=== PATIENT | female | born 2005 | race Caucasian/White ===

== ENCOUNTER 2023-12-13 12:55 | Emergency (ER) | payer OTHER, SELFPAY ==
[2023-12-13 12:59] VITALS: BP 138/94; PULSE 80; TEMP 36.6; O2SAT 98; BMI 39.7
--- NOTE | 2023-12-13 13:08 | ED_ITS ---
HPI HPI - General Adult General Chief complaint: Head Injury Stated complaint: [facility] - HEAD INJURY Time Seen by Provider: 12/13/23 13:07 Source: patient Mode of arrival: walk-in Limitations: no limitations History of Present Illness HPI narrative: Patient is a 18-year-old female who is presenting to the Emergency Room today with chief complaint of closed head injury. Patient was working in [facility]. 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 Patient slipped, landing backwards and hitting the back of her head on sand. Patient has not had a hard object on concrete. Patient was able to drive her car from [place] to [place] to be evaluated. Patient lives in a local area. Patient's father was able to help follow her from work to the Emergency Room today. Patient has mild lightheaded, dizziness, mild photophobia, minimal nausea. No neck pain, chest pain, shortness of breath. Patient had a closed head injury approximately one year ago with similar episode of slipping on ice and pain in the back of her head. Patient is alert and oriented ?3. No blood thinners. Patient's she is a IUD, she is not . No other acute complaints. . All systems are negative except as noted/marked. All systems reviewed and otherwise negative. . Nurses note and vital signs reviewed and patient is not hypoxic. General: The patient appears well and in no apparent distress. Patient is resting comfortably on cart. Patient is not toxic, lethargic, or listless Skin: Warm, dry, no pallor noted. There is no rash noted. No petechiae, purpura. Multiple piercings, no scalp hematoma, no hematoma, no abrasions or lacerations. Head: Normocephalic, atraumatic; No scalp hematoma. No midline or paracervical tenderness to palpation. Eye: Normal conjunctiva, no drainage, EOMI. PERRL. 4/2 Pupils, equal, bilateral. Ears, Nose, Mouth, and Throat: oral mucosa is moist. Nares patent. Mouth without vesicles. Cardiovascular: Regular Rate and Rhythm, no murmur, gallop, rub Respiratory: Patient is in no distress, no accessory muscle use, lungs are clear to auscultation, no wheezing, rales or rhonchi Back: non-tender, no CVA tenderness bilaterally to percussion. No CT LS midline pain GI: Obese, soft, no tenderness to palpation, no masses appreciated. No rebound, guarding, or rigidity noted. No flank pain bilateral, No distention Musculoskeletal: Patient has full range of motion of all of the extremities, no motor, sensory, or focal neurological deficits Neurological: A&O x3, normal speech Psychiatric: Cooperative Related Data Home Medications ?Medication ?Instructions ?Recorded ?Confirmed aripiprazole 5 mg tablet 5 mg PO DAILY 12/13/23 12/13/23 buspirone 5 mg tablet 5 mg PO DAILY 12/13/23 12/13/23 Allergies Allergy/AdvReac Type Severity Reaction Status Date / Time sulfamethoxazole Allergy Mild Verified 12/13/23 12:59 [From ] trimethoprim [From ] Allergy Mild Verified 12/13/23 12:59 pcn Allergy Mild Uncoded 12/13/23 12:59 Opioid HPI Opioid Management Most Recent Opioid Data: No Data to Display Exam Constitutional Vital Signs, click to edit/add: Last Vital Signs Temp 97.8 F 12/13/23 12:59 Pulse 80 12/13/23 12:59 Resp 18 12/13/23 12:59 BP 138/94 H 12/13/23 12:59 Pulse Ox 98 12/13/23 12:59 O2 Del Method Room Air 12/13/23 12:59 Course Vital Signs Vital signs: Vital Signs Temperature 97.8 F 12/13/23 12:59 Pulse Rate 80 12/13/23 12:59 Respiratory Rate 18 12/13/23 12:59 Blood Pressure 138/94 H 12/13/23 12:59 Pulse Oximetry 98 12/13/23 12:59 Oxygen Delivery Method Room Air 12/13/23 12:59 Temperature 97.8 F 12/13/23 12:59 Pulse Rate 80 12/13/23 12:59 Respiratory Rate 18 12/13/23 12:59 Blood Pressure 138/94 H 12/13/23 12:59 Pulse Oximetry 98 12/13/23 12:59 Oxygen Delivery Method Room Air 12/13/23 12:59 Medical Decision Making MDM Narrative Medical decision making narrative: Patient looks well. No acute indication for CT of the brain. Trauma criteria was discussed with patient and father. Patient's father is at bedside. Patient was given Tylenol initially in the uvula is open at discharge. Patient has mild nausea. No loss of consciousness. No vomiting, no neck pain. No significant findings. Patient will follow-up with occupational health clinic. Paperwork has been signed. No questions at discharge. Patient states that she suffers from anxiety, and feels better after Emergency Room evaluation. Father minute, and at discharge don't she feel better than nothing is wrong patient related her nausea to anxiety. No questions at discharge. Work restrictions given. Discharge Plan Discharge Stand Alone Forms: Portal Instructions Chief Complaint: Head Injury Clinical Impression: Closed head injury Patient Disposition: Home, Self-Care Time of Disposition Decision: 14:56 Condition: Fair Prescriptions / Home Meds: No Action aripiprazole 5 mg tablet 5 mg PO DAILY buspirone 5 mg tablet 5 mg PO DAILY Print Language: Maldivian Instructions: Head Injury (ED) Additional Instructions: Use ice 20 minutes on, 20 minutes off. Work restrictions were given. Worker's Comp. papers have been filled. Use Tylenol and Motrin, alternate every 4 hours to help with pain. Patient had closed head injury instructions discussed at bedside and on discharge paperwork. Referrals: [facility] - 1 week KIRAN CORONA [Primary Care Provider] - 1 week Discharge Date/Time: 12/13/23 15:14
[2023-12-13] MEDS: ACETAMINOPHEN 500 MG TABLET PO (13:12)
== END 2023-12-13 15:14 | disposition home or self-care (01) ==
PROVIDERS: Emergency Provider Emergency Medicine; PCP Nurse Practitioner
DX: S09.8XXA Other specified injuries of head, initial encounter (principal); W01.198A Fall on same level from slipping, tripping and stumbling with subsequent striking against other object, initial encounter; Z97.5 Presence of (intrauterine) contraceptive device; Z79.899 Other long term (current) drug therapy
CPT/HCPCS: 99282

== ENCOUNTER 2025-07-10 02:38 | Emergency (ER) | payer OTHER, SELFPAY ==
[2025-07-10 02:42] VITALS: BP 114/76; PULSE 97; TEMP 36.8; O2SAT 99; BMI 43.0
--- OUTSIDE RECORDS SUMMARY | 2025-07-10 02:44 | XMS_ITS | Clinical Summary ---
Author Organization [facility] Address [address] [place] [id number] Care Team Providers [employer] Name Role Phone Corrie Wilson MD Primary Care Provider [phone] Allergies Active AllergyReactionsCriticalityNoted WsamPjteihgrHvmfxhbtzgjGipf79/31/2019 Sulfamethoxazole-PvpgnwaunqufXqkmj12/31/2019 Medications MedicationSigDispense QuantityRefillsLast FilledStart DateEnd DateStatus FLUoxetine HCl (PROZAC) 40 mg capsule Take 60 mg by mouth once daily.Active Minocycline HCl 100 mg tablet Take 100 mg by mouth twice daily.Active cetirizine (ZYRTEC) 10 mg tablet Take 10 mg by mouth once daily.Active loratadine (CLARITIN) 10 mg tablet Take 1 tablet by mouth once daily as needed for Cold/Allergy Symptoms.09/10/2019 Active Active Problems ProblemNoted DateDiagnosed DateElevated gsggianmfuy57/02/2020 Overview (09/10/2019): Component Latest Ref Rng & Units 09/09/2019 Cholesterol, Total <170 mg/dL 155 Triglyceride <90 mg/dL 255 (H) HDL Cholesterol >45 mg/dL 28 (L) LDL Calculated <110 mg/dL 76 Non HDL Cholesterol <120 mg/dL 127 (H) VLDL Cholesterol <18 mg/dL 51 (H) TC:HDL Ratio <3.76 5.54 (H) LDL:HDL Ratio <2.42 2.71 (H) TSH 0.510 - 4.300 uU/mL 6.270 (H) Rcwtaoleui99/01/2020 Overview (09/09/2019): Continue fluoxetine 60mg daily Gender otzhzospa83/01/2020 Overview (09/09/2019): Needs outpatient referrals Consider binder Consider OCPs for menstrual dysphoria Borderline personality disorder in /01/2020 Overview (09/09/2019): Monitor and obtain outpatient collateral Elevated TSH09/09/2019 Overview (09/10/2019): TSH was 6.270 - will recommend repeating TSH following discharge Social History Tobacco UseTypesPacks/DayYears UsedDateSmoking Tobacco: Never Assessed CommentsNoSex and Gender InformationValueDate RecordedSex Assigned at Wzikss9809/09/2019 2:48 PM ESTLegal OvxVhgajr26/31/2019 6:43 PM ESTGender Identity Male09/09/2019 2:56 PM ESTSexual CkjuxgxebchTlwpprul05/01/2020 2:48 PM EST Last Filed Vital Signs Vital SignReadingTime TakenCommentsBlood Fypbfijv824/75009/10/2019 9:00 AM EST Gpmgp481909/10/2019 9:00 AM SXSUpbmydmjtsj32.4 ??C (97.5 ??F)09/10/2019 9:00 AM ESTRespiratory Ktly478909/10/2019 9:00 AM ESTOxygen Bdeedmskce67%09/10/2019 9:00 AM ESTInhaled Oxygen Concentration--Effkjz738.9 kg (260 lb)09/08/2019 6:54 PM ESTHeight--Body Mass Index-- Plan of Treatment Not on file Insurance Care Teams Team MemberRelationshipSpecialtyStart DateEnd Date Corrie Wilson MD [address] [place] [address] [place] [id number] PCP - WidtvtjJbnnguleok85/31/19
--- OUTSIDE RECORDS SUMMARY | 2025-07-10 02:44 | XMS_ITS | Clinical Summary ---
Author Organization [facility] Address [address] [place] [address] Care Team Providers Care Docket Clerk Name Role Phone Taniya, César Lacy DO Primary Care Provider [phone] Allergies Active AllergyReactionsCriticalityNoted DateCommentsPenicillinsHives,RashLow 06/09/2019Sulfamethoxazole-TrimethoprimGI intolerance,Hives09/08/2019 Medications MedicationSigDispense QuantityRefillsLast FilledStart DateEnd DateStatus hydrOXYzine HCl (Atarax) 50 MG tablet Take 1 tablet by mouth 3 (three) times a day as [id number] busPIRone (Buspar) 10 MG tablet Indications:Current moderate episode of major depressive disorder without prior episode (HCC)Take 1 tablet (10 mg) by mouth Daily 30 tablet 1114Active ARIPiprazole (Abilify) 10 MG tablet Indications:Current moderate episode of major depressive disorder without prior episode (HCC)Take 1 tablet by mouth once daily 30 tablet 5Active ofloxacin (Ocuflox) 0.3 % ophthalmic solution Indications:Acute bacterial conjunctivitis of left eyeAdminister 1 drop into the left eye in the morning and 1 drop at noon and 1 drop in the evening and1 drop before bedtime. 10 mL 5Active Additional Information Patient not taking.Reason: Not available, Reported on 06/21/2025 hydrOXYzine pamoate (Vistaril) 25 MG capsule Indications:Primary insomniaTake 1 capsule (25 mg) by mouth as needed at bedtime for anxiety (sleep) 30 capsule 5Active metFORMIN XR (Glucophage-XR) 500 MG 24 hr tablet Indications:Insulin resistanceTake 1 tablet (500 mg) by mouth in the evening. Take with meals Do not crush, chew, or split. 30 tablet 11004/26//ctive levothyroxine (Synthroid, Levoxyl) 50 MCG tablet Indications:Acquired hypothyroidismTake 1 tablet (50 mcg) by mouth Daily 30 tablet 11004/26//6Active rosuvastatin (Crestor) 10 MG tablet Indications:Elevated lipoprotein A levelTake 1 tablet (10 mg) by mouth Daily 30 tablet 5004/27/703393/ctive PARAGARD INTRAUTERINE COPPER IU by Intrauterine routeActive albuterol HFA (ProAir HFA) 90 mcg/act inhaler Indications:Acute coughInhale 2 puffs every 4 (four) hours if needed for wheezing 18 g 111/ctive Levonorgestrel (KYLEENA IU) by Intrauterine route06/21/2025Discontinued(Therapy completed) clindamycin (Cleocin) 300 MG capsule Indications:Acute non-recurrent maxillary sinusitisTake 1 capsule (300 mg) by mouth in the morning and 1 capsule (300 mg) before bedtime. Do all this for 10 days. 20 capsule /Expired predniSONE (Deltasone) 20 MG tablet Indications:Acute cough,Acute non-recurrent maxillary sinusitisTake 3 tablets (60 mg) by mouth Daily for 5 days, THEN 2 tablets (40 mg) Daily for 2 days, THEN 1 tablet (20 mg) Daily for 2 days. 21 tablet /Expired Active Problems ProblemNoted DateDiagnosed DateModerate mixed hyperlipidemia not requiring statin xfelhwq1704/20/2024Intrinsic ezvdry7508/13/2023Renal tmkvjp6108/13/2023Vitamin D qwhamekzvr09/05/2023Elevated ykpnosjctyj36/02/2020 Overview (08/13/2023): Component Latest Ref Rng & Units 09/09/2019 Cholesterol, Total <170 mg/dL 155 Triglyceride <90 mg/dL 255 (H) HDL Cholesterol >45 mg/dL 28 (L) LDL Calculated <110 mg/dL 76 Non HDL Cholesterol <120 mg/dL 127 (H) VLDL Cholesterol<18 mg/dL 51 (H) TC:HDL Ratio <3.76 5.54 (H) LDL:HDL Ratio <2.42 2.71 (H) TSH 0.510 - 4.300 uU/mL 6.270 (H) Borderline personality disorder in rigziytmxi04/01/2020 Overview (08/13/2023): Monitor and obtain outpatient collateral Zmklelkslz84/01/2020 Overview (08/13/2023): Continue fluoxetine 60mg daily Gender kvzyegtut89/01/2020 Overview (08/13/2023): Needs outpatient referrals Consider binder Consider OCPs for menstrual dysphoria Woltzru7001/03/2018 Resolved Problems ProblemNoted DateDiagnosed DateResolved DateSore /08/2024 Abdominal painmenorrhealood in stool /4509Kesmcnmoeqbxwe05/05/202312/05/2023Menstrual cramp08/13/2023 08/13/20239945Hhohbyswwygrwu54/05/202312/05/2023Suicidal behavior with attempted self-djrequ88Suicidal Encounters DateTypeDepartmentCare EtetOjwogiirgnd28/15/2025Telephone [facility] [address] [place] [address] Migdalia Sandra MA 06/21/2025 3:00 PM EDTOffice Visit [facility] [address] [place] [address] Janna Fields, QUALITY ASSURANCE MONITOR Acute cough (Primary Dx); Borderline personality disorder (HCC); Sore throat; Other fatigue; Acute non-recurrent maxillary gnraxaauw70/13/2025amboo flowsheet [facility] [place] [address] [place] [address] Janna Fields NP 06/21/20257066Mvyeyi15/15/2025Orders Only [facility] [place] [address] [place] [address] Janna Fields NP 04/27/2025Telephone [facility] [place] [address] [place] [address] Tamika Saucedo MA Medication Xyjjghqr77/18/2025 1:00 PM EDTOffice Visit [facility] [place] [address] [place] [address] Janna Fields NP Insulin resistance (Primary Dx); Acquired hypothyroidism ; Elevated lipoprotein A level ; Moderate mixed hyperlipidemia not requiring statin hjxvcun8604/26/2025amboo flowsheet [facility] [place] [address] [place] [address] Janna Fields NP 04/26/20253768Ygsxzl42/15/2025Results Follow-Up [facility] [place] [address] [place] [address] Janna Fields NP CBC and differential, Comprehensive metabolic panel, Hemoglobin A1c, Additional followed-up results: 10:30 AM EDTOffice Visit [facility] [place] [address] [place] [address] Janna Fields NP Hyperglycemia (Primary Dx); Vitamin D deficiency; Iron deficiency; Family history of elevated lipoprotein (a); Primary insomnia; Acute serous otitis media, recurrence not specified, unspecified laterality 04/20/2025amboo flowsheet [facility] [place] [address] [place] [address] Janna Fields NP 04/20/2025Travelfrom Last 3 Months Immunizations ImmunizationAdministration DatesNext DueDTaP, Vwqoosntiyz78/02/2009,10/14/2004, 2003,2003,2003Hep A, ped/adol, 2 dose02/20/2021,06/08/2019Hep B, Adolescent or Cpacksdim29/30/2005,02/12/2004,2003HiB, unspecified 10/14/2004Hib (HbOC)2003,2003,2003IPV12/09/2008,02/12/2004, 2003,2003Influenza Whole06/22/2004Influenza, Dunuqazbssj11/11/2010, 09/19/2009MMR12/09/2008,06/22/2004Meningococcal ACWY, bgqcnfdioxb26/07/2016 Meningococcal QFJ4R9202/20/2021,03/15/2016Moderna SARS-CoV-2 Npgebulmani75/16/2021 ,12/01/2020Novel Uxwrkgwir-R1G5-50, nasal10/20/2009,09/19/2009Pneumococcal Conjugate PCV 7010/14/2004,2003,2003,2003Polio, Unspecified 12/09/2008,02/12/2004,2003,2003Tdap03/15/20169733Uhpfquknp97/02/2009, 06/22/2004 Family History Medical HistoryRelationNameCommentsDiabetesBrotherDiabetesFatherHyperlipidemia FatherHypertensionFatherDiabetesMaternal GrandmotherDiabetesMotherRelationName StatusCommentsBrotherAliveFatherAliveMaternal GrandfatherDeceasedMaternal GrandmotherDeceasedMotherAlivePaternal GrandfatherDeceasedPaternal Grandmother Social History Tobacco UseTypesPacks/DayYears UsedDateSmoking Tobacco: Some DaysCigarettes Smokeless Tobacco: Never Tobacco Cessation:Ready to Q uit: Not Asked; Counseling Given: Not Answered Alcohol UseStandard Drinks/WeekCommentsNever0 (1 standard drink = 0.6 oz pure alcohol)caffeine: 2-3 cups per dayPHQ-2AnswerDate RecordedPatient Health Questionnaire-2 Bqnwx744CommentsNoSex and Gender Information ValueDate RecordedSex Assigned at BirthNot on fileLegal NxtKtjudq46/15/2023 8:14 PM EDTGender IdentityNot on fileSexual OrientationNot on file Last Filed Vital Signs Vital SignReadingTime TakenCommentsBlood Fsqnhxyu342/8806/21/2025 3:08 PM EDT Qmaji30610/13/2025 3:08 PM OUMVcrgpckzvrw71.9 ??C (96.6 ??F)06/21/2025 3:08 PM EDTRespiratory Rate--Oxygen Rgsvwxarvx74%06/21/2025 3:08 PM EDTInhaled Oxygen Concentration--Olmdva823 kg (304 lb)06/21/2025 3:08 PM CKQXokijf372.1 cm (5' 5 ) 06/21/2025 3:08 PM EDTBody Mass Index50.5906/21/2025 3:08 PM EDT Plan of Treatment Health MaintenanceDue DateLast DoneCommentsInfluenza Vaccine (#1)03/08/2026 10/20/2009, 09/19/2009, 06/22/2004Postponed from 05/10/2025 (Patient Refused) Procedures Procedure NamePriorityDate/TimeAssociated DiagnosisCommentsPOCT INFECTIOUS MONONUCLEOSIS DETOZZDBLvpdovc38/13/2025 3:37 PM EDT Sore throat Other fatigue POCT RAPID STREP RPnntfgq42/13/2025 3:36 PM EDT Acute cough Sore throat Other fatigue POCT COVID & FLU A/B ANTIGEN MXHVKnepesi56/13/2025 3:36 PM EDT Acute cough Sore throat Other fatigue COLONOSCOPY JCNQTLRNCOXeifanf02/12/2025 7:23 AM VOYBVFNKFSDuvkmuz04/12/2025 11:00 AM EDT Hyperglycemia LIPOPROTEIN A (LPA)Goiyevi4104/20/2025 11:00 AM EDT Family history of elevated lipoprotein (a) VITAMIN D 25 HYDROXY FNVOZKejiabt18/12/2025 11:00 AM EDT Vitamin D deficiency EABMYOYLIpbprtj43/12/2025 11:00 AM EDT Iron deficiency IRON, WEYOHFaobnuz06/12/2025 11:00 AM EDT Iron deficiency T4 (THYROXINE), NQDEFLgtkgsu01/12/2025 11:00 AM EDT Hyperglycemia UDXOkhmfog17/12/2025 11:00 AM EDT Hyperglycemia LIPID ISDFQYxxzsvv25/12/2025 11:00 AM EDT Hyperglycemia HEMOGLOBIN B7XFmjawfj81/12/2025 11:00 AM EDT Hyperglycemia COMPREHENSIVE METABOLIC UHTCOCoigkrb66/12/2025 11:00 AM EDT Hyperglycemia CBC (INCLUDES DIFF/PLT)Rgkcmgz3404/20/2025 11:00 AM EDT Hyperglycemia from Last 3 Months Results * POCT Infectious mononucleosis antibodies (06/21/2025 3:37 PM EDT)Component ValueRef RangeTest MethodAnalysis TimePerformed AtPathologist Signature MonospotnegativeSpecimen (Source)Anatomical Location / LateralityCollection Method / VolumeCollection TimeReceived UgchWgszk60/13/2025 3:37 PM EDT Narrative Authorizing ProviderResult TypeResult StatusRachel E Fruth NPPOINT OF CARE TEST ENTER/EDIT ORDERABLESFinal Result * POCT COVID & Flu A/B Antigen (06/21/2025 3:36 PM EDT)ComponentValueRef Range Test MethodAnalysis TimePerformed AtPathologist SignatureCOVID 19negFLU Aneg FLU BnegSpecimen (Source)Anatomical Location / LateralityCollection Method / VolumeCollection TimeReceived CjawHiqqz91/ 3:36 PM EDT Narrative Authorizing ProviderResult TypeResult StatusRachel E Fruth NPPOINT OF CARE TEST ENTER/EDIT ORDERABLESFinal Result * POCT rapid strep A manually resulted (06/21/2025 3:36 PM EDT)ComponentValueRef RangeTest MethodAnalysis TimePerformed AtPathologist SignatureRapid Strep A ScreenNegativeNegative, None DetectedSpecimen (Source)Anatomical Location / LateralityCollection Method / VolumeCollection TimeReceived IxdzRgdf27/13/2025 3:36 PM EDT Narrative Authorizing ProviderResult TypeResult StatusRachel E Fruth NPPOINT OF CARE TEST ENTER/EDIT ORDERABLESFinal Result * COLONOSCOPY DIAGNOSTIC (05/21/2025 7:23 AM EDT)Anatomical RegionLaterality ModalityRadiographic Imaging Narrative Authorizing ProviderResult TypeResult StatusRachel E Fruth NPIMG XR PROCEDURES Final Result * (ABNORMAL) Insulin, fasting (04/20/2025 11:00 AM EDT)ComponentValueRef Range Test MethodAnalysis TimePerformed AtPathologist VulncdqyaKYKOGKR51.6(H)uIU/mL QUESTComment: Reference Range < or = 18.4 ?Risk: Optimal < or = 18.4 ?Moderate ? NA High >18.4 ?Adult cardiovascular event risk category ?cut points (optimal, moderate, high) ?are based on Insulin Reference Interval ?studies performed at [facility] ?in 2021. ? Specimen (Source)Anatomical Location / LateralityCollection Method / Volume Collection TimeReceived TimeBloodVenous blood specimen / Yoybdcw0404/20/2025 11:00 AM EDT04/20/2025 11:00 AM EDT Narrative [facility] - 04/23/2025 11:52 AM EDT FASTING:YES FASTING: YES Resulting Agency Comment Performing Organization Information ?Site ID: QPT ?Name: [facility] ?Address: [address] [place] [address], [address] [place] [phone] ?Director: Alok Hua MD Authorizing ProviderResult TypeResult StatusRachel E Fruth NPLAB BLOOD ORDERABLESFinal ResultPerforming OrganizationAddressCity/State/ZIP CodePhone Number [facility] * (ABNORMAL) Lipoprotein A (LPA) (04/20/2025 11:00 AM EDT)ComponentValueRef RangeTest MethodAnalysis TimePerformed AtPathologist SignatureLIPOPROTEIN (A) 180(H)<75 nmol/LQUESTComment: ? Risk Category Optimal < 75 nmol/L ??Moderate ?? 75 - 125 nmol/L High > 125 nmol/L Cardiovascular event risk category cut points (optimal, moderate, high) are based on Jamir Lipscomb JACC 2017;69:692-711. ? Specimen (Source)Anatomical Location / LateralityCollection Method / Volume Collection TimeReceived TimeBloodVenous blood specimen / Lrdrbzl1604/20/2025 11:00 AM EDT04/20/2025 11:00 AM EDT Narrative [facility] - 04/23/2025 11:52 AM EDT FASTING:YES FASTING: YES Resulting Agency Comment Performing Organization Information ?Site ID: AMD ?Name: [facility] [place] ?Address: [address] [place] [address] [address] [place] ?Director: Ronak Larios M.D.,PhD Authorizing ProviderResult TypeResult StatusRachel E FruView the Space NPLAB BLOOD ORDERABLESFinal ResultPerforming OrganizationAddressCity/State/ZIP CodePhone Number [facility] * (ABNORMAL) Vitamin D 25 hydroxy (04/20/2025 11:00 AM EDT)ComponentValueRef RangeTest MethodAnalysis TimePerformed AtPathologist SignatureVITAMIN D,25-OH,TOTAL,IA24(L)30 - 100 ng/mLQUESTComment: Vitamin D Status ? 25-OH Vitamin D: Deficiency: <20 ng/mL Insufficiency: ? 20 - 29 ng/mL Optimal: > or = 30 ng/mL For 25-OH Vitamin D testing on patients on D2-supplementation and patients for whom quantitation of D2 and D3 fractions is required, the QuestAssureD(TM) 25-OH VIT D, (D2,D3), LC/MS/MS is recommended: order code 44998 (patients >2yrs). See Note 1 Note 1 For additional information, please refer to http://education.Credivalores-Crediservicios.UmbaBox/faq/BSO627 (This link is being provided for informational/ educational purposes only.) Specimen (Source)Anatomical Location / LateralityCollection Method / Volume Collection TimeReceived TimeBloodVenous blood specimen / Puvursl2304/20/2025 11:00 AM EDT04/20/2025 11:00 AM EDT Narrative [facility] - 04/23/2025 11:52 AM EDT FASTING:YES FASTING: YES Resulting Agency Comment Performing Organization Information ?Site ID: QPT ?Name: [facility] ?Address: [address] [place] [phone] ?Director: Alok Hua MD Authorizing ProviderResult TypeResult StatusRachel E Fruth NPLAB BLOOD ORDERABLESFinal ResultPerforming OrganizationAddressCity/State/ZIP CodePhone Number [facility] * CBC and differential (04/20/2025 11:00 AM EDT)ComponentValueRef RangeTest MethodAnalysis TimePerformed AtPathologist SignatureWHITE BLOOD CELL COUNT7.7 3.8 - 10.8 Thousand/uLQUESTRED BLOOD CELL COUNT4.543.80 - 5.10 Million/uLQUEST YNKQNIEMFV02.711.7 - 15.5 g/qIWVGUZHLKMKLTEOG24.235.0 - 45.0 %NCSPBRSA02.080.0 - 100.0 iVOTIXBSUC60.227.0 - 33.0 huPOSIHBGIC86.532.0 - 36.0 g/dLQUESTComment: For adults, a slight decrease in the calculated MCHC value (in the range of 30 to 32 g/dL) is most likely not clinically significant; however, it should be interpreted with caution in correlation with other red cell parameters and the patient's clinical condition. RDW13.011.0 - 15.0 %QUESTPLATELET IEVSU392160 - 400 Thousand/uLQUESTMPV9.77.5 - 12.5 fLQUESTABSOLUTE NEUTROPHILS5,0671,500 - 7,800 cells/uLQUESTABSOLUTE LYMPHOCYTES1,702681 - 3,900 cells/uLQUESTABSOLUTE XSQRPKNKF424317 - 950 cells/uL QUESTABSOLUTE USUBLBPAMAT88001 - 500 cells/uLQUESTABSOLUTE EECRACCOH289 - 200 cells/iDATESLGZFZCMSHKJU07.8%RNBWRYKSJSPZSXFV13.0%QUESTMONOCYTES8.5%QUEST EOSINOPHILS2.2%QUESTBASOPHILS0.5%QUESTSpecimen (Source)Anatomical Location / LateralityCollection Method / VolumeCollection TimeReceived TimeBloodVenous blood specimen / Lwhptqd9204/20/2025 11:00 AM EDT04/20/2025 11:00 AM EDT Narrative [facility] - 04/23/2025 11:52 AM EDT FASTING:YES FASTING: YES Resulting Agency Comment Performing Organization Information ?Site ID: QPT ?Name: [facility] ?Address: [address] [place] [phone] ?Director: Alok Hua MD Authorizing ProviderResult TypeResult StatusRachel E Fruth NPLAB BLOOD ORDERABLESFinal ResultPerforming OrganizationAddressCity/State/[facility] CodePhone Number [facility] * (ABNORMAL) TSH (04/20/2025 11:00 AM EDT)ComponentValueRef RangeTest Method Analysis TimePerformed AtPathologist SignatureTSH5.22(H)mIU/LQUESTComment: ?Reference Range ? > or = 20 Years 0.40-4.50 ? Ranges ?First trimester ?0.26-2.66 ?Second trimester ?? 0.55-2.73 ?Third trimester ?0.43-2.91 Specimen (Source)Anatomical Location / LateralityCollection Method / Volume Collection TimeReceived TimeBloodVenous blood specimen / Dkkdyzm21/08/2025 11:00 AM EDT04/20/2025 11:00 AM EDT Narrative [facility] - 04/23/2025 11:52 AM EDT FASTING:YES FASTING: YES Resulting Agency Comment Performing Organization Information ?Site ID: QPT ?Name: [facility] ?Address: [address] [place] [address] ?Director: Alok Hua MD Authorizing ProviderResult TypeResult StatusRachel E PageBitesLAB BLOOD ORDERABLESFinal ResultPerforming OrganizationAddGeisinger Medical Centerty/[facility]/ZIP CodePhone Number [facility]ST * T4 (04/20/2025 11:00 AM EDT)ComponentValueRef RangeTest MethodAnalysis Time Performed AtPathologist SignatureT4 (THYROXINE), TOTAL6.15.1 - 11.9 mcg/dL QUESTSpecimen (Source)Anatomical Location / LateralityCollection Method / VolumeCollection TimeReceived TimeBloodVenous blood specimen / Unknown 04/20/2025 11:00 AM EDT04/20/2025 11:00 AM EDT Narrative [facility] - 04/23/2025 11:52 AM EDT FASTING:YES FASTING: YES Resulting Agency Comment Performing Organization Information ?Site ID: QPT ?Name: [facility] ?Address: [address] [place] [address], [address] [place] [address] ?Director: Alok Hua MD Authorizing ProviderResult TypeResult StatusRachel E [facility] NPLAB BLOOD ORDERABLESFinal ResultPerforming OrganizationAddGeisinger Medical Centerty/[facility]/ZIP CodePhone Number QUEST * Iron level (04/20/2025 11:00 AM EDT)ComponentValueRef RangeTest MethodAnalysis TimePerformed AtPathologist SignatureIRON, JLPKO6555 - 190 mcg/dLQUESTSpecimen (Source)Anatomical Location / LateralityCollection Method / VolumeCollection TimeReceived TimeBloodVenous blood specimen / Pixdzln5404/20/2025 11:00 AM EDT 04/20/2025 11:00 AM EDT Narrative [facility] - 04/23/2025 11:52 AM EDT FASTING:YES FASTING: YES Resulting Agency Comment Performing Organization Information ?Site ID: QPT ?Name: [facility] ?Address: [address] , [address] [place] [address] ?Director: Alok Hua MD Authorizing ProviderResult TypeResult StatusRachel E Fruth NPLAB BLOOD ORDERABLESFinal ResultPerforming OrganizationAddressty/[facility] CodePhone Number [facility] * Hemoglobin A1c (04/20/2025 11:00 AM EDT)ComponentValueRef RangeTest Method Analysis TimePerformed AtPathologist SignatureHemoglobin A1C5.1<5.7 %QUEST Comment: For the purpose of screening for the presence of diabetes: <5.7% Consistent with the absence of diabetes 5.7-6.4% ?Consistent with increased risk for diabetes ?(prediabetes) > or =6.5% Consistent with diabetes This assay result is consistent with a decreased risk of diabetes. Currently, no consensus exists regarding use of hemoglobin A1c for diagnosis of diabetes in children. According to [place] Diabetes Association (ADA) guidelines, hemoglobin A1c <7.0% represents optimal control in non- diabetic patients. Different metrics may apply to specific patient populations. Standards of Medical Care in Diabetes(ADA). Specimen (Source)Anatomical Location / LateralityCollection Method / Volume Collection TimeReceived TimeBloodVenous blood specimen / Viwkibc4604/20/2025 11:00 AM EDT04/20/2025 11:00 AM EDT Narrative [facility] - 04/23/2025 11:52 AM EDT FASTING:YES FASTING: YES Resulting Agency Comment Performing Organization Information ?Site ID: QPT ?Name: [facility] ?Address: [address] , [address] [place] [address] ?Director: Alok Hua MD Authorizing ProviderResult TypeResult StatusRachel E Fruth NPLAB BLOOD ORDERABLESFinal ResultPerforming OrganizationAddressCity/State/ZIP CodePhone Number [facility] * Ferritin (04/20/2025 11:00 AM EDT)ComponentValueRef RangeTest MethodAnalysis TimePerformed AtPathologist LvqkoopvwRIWEVZDK2201 - 154 ng/mLQUESTSpecimen (Source)Anatomical Location / LateralityCollection Method / VolumeCollection TimeReceived TimeBloodVenous blood specimen / Bkxbgay8404/20/2025 11:00 AM EDT 04/20/2025 11:00 AM EDT Narrative [facility] - 04/23/2025 11:52 AM EDT FASTING:YES FASTING: YES Resulting Agency Comment Performing Organization Information ?Site ID: QPT ?Name: [facility] ?Address: [address] [place] [address], [address] [place] [phone] ?Director: Alok Hua MD Authorizing ProviderResult TypeResult StatusRachel E Fruth NPLAB BLOOD ORDERABLESFinal ResultPerforming OrganizationAddressCity/State/ZIP CodePhone Number [facility] * (ABNORMAL) Lipid panel (04/20/2025 11:00 AM EDT)ComponentValueRef RangeTest MethodAnalysis TimePerformed AtPathologist SignatureCHOLESTEROL, YHDJT136<200 mg/dLQUESTHDL UNQMUNEMFWX20(L)> OR = 50 mg/oGDUYAVRXPQHCXBYOHXX698(H)<150 mg/dLQUESTComment: If a non-fasting specimen was collected, consider repeat triglyceride testing on a fasting specimen if clinically indicated. Suma et al. J. of Clin. Lipidol. 2015;9:129-169. LDL KYCRYHKAZJL24jt/dL (calc)QUESTComment: Reference range: <100 Desirable range <100 mg/dL for primary prevention; <70 mg/dL for patients with CHD or diabetic patients with > or = 2 CHD risk factors. LDL-C is now calculated using the Dewayne-Deion calculation, which is a validated novel method providing better accuracy than the Friedewald equation in the estimation of LDL-C. Dewayne SS et al. JOHANNA. 2013;310(19): 7344-7659 (http://education.Credivalores-Crediservicios.UmbaBox/faq/NPI988) CHOL/HDLC RATIO4.8<5.0 (calc)QUESTNON HDL YGQVFKCMZSG114(H)<130 mg/dL (calc) QUESTComment: For patients with diabetes plus 1 major ASCVD risk factor, treating to a non-HDL-C goal of <100 mg/dL (LDL-C of <70 mg/dL) is considered a therapeutic option. Specimen (Source)Anatomical Location / LateralityCollection Method / Volume Collection TimeReceived TimeBloodVenous blood specimen / Xkuwkza4004/20/2025 11:00 AM EDT04/20/2025 11:00 AM EDT Narrative [facility] - 04/23/2025 11:52 AM EDT FASTING:YES FASTING: YES Resulting Agency Comment Performing Organization Information ?Site ID: QPT ?Name: [facility] ?Address: [address] [place] [address], [address] [place] [phone] ?Director: Alok Hua MD Authorizing ProviderResult TypeResult StatusRachel E Fruth NPLAB BLOOD ORDERABLESFinal ResultPerforming OrganizationAddressCity/State/ZIP CodePhone Number [facility] * Comprehensive metabolic panel (04/20/2025 11:00 AM EDT)ComponentValueRef Range Test MethodAnalysis TimePerformed AtPathologist BnkcdptnnBkyoyje5375 - 99 mg/dLQUESTComment: ? Fasting reference interval AQA892 - 25 mg/dLQUESTCreatinine0.700.50 - 0.96 mg/kXXHVGSGPQE116> OR = 60 mL/min/1.55z5MDHTMWOD/CREATININE RATIOSEE NOTE: (calc)QUESTComment: ?? Not Reported: BUN and Creatinine are within ?? reference range. ? Xvpwtc410519 - 146 mmol/LQUESTPotassium, Bld4.13.5 - 5.3 mmol/KCJPBEBgftbarv474 98 - 110 mmol/LQUESTCarbon Cuhsnbo1827 - 32 mmol/LQUESTCalcium9.38.6 - 10.2 mg/dLQUESTPROTEIN, TOTAL6.86.1 - 8.1 g/dLQUESTALBUMIN4.43.6 - 5.1 g/dLQUEST GLOBULIN2.41.9 - 3.7 g/dL (calc)QUESTALBUMIN/GLOBULIN RATIO1.81.0 - 2.5 (calc) QUESTBILIRUBIN, TOTAL0.60.2 - 1.2 mg/dLQUESTALKALINE MPPOMCHWXNI8115 - 125 U/L EKHOYIVG6293 - 30 U/JCTXIHPOS779 - 29 U/LQUESTSpecimen (Source)Anatomical Location / LateralityCollection Method / VolumeCollection TimeReceived TimeBlood Venous blood specimen / Mqssmsj0904/20/2025 11:00 AM EDT04/20/2025 11:00 AM EDT Narrative [facility] - 04/23/2025 11:52 AM EDT FASTING:YES FASTING: YES Resulting Agency Comment Performing Organization Information ?Site ID: QPT ?Name: [facility] ?Address: [address] [place] [address], [address] [place] [phone] ?Director: Alok Hua MD Authorizing ProviderResult TypeResult StatusRachel E Fruth NPLAB BLOOD ORDERABLESFinal ResultPerforming OrganizationAddressCity/[facility] [facility] CodePhone Number QUEST from Last 3 Months Insurance Care Teams Team MemberRelationshipSpecialtyStart DateEnd Date César Monahan DO [address] [place] [address] PCP - GeneralFamily Medicine01/15/23
--- OUTSIDE RECORDS SUMMARY | 2025-07-10 02:44 | XMS_ITS | Clinical Summary ---
Author Organization [facility] tem Address [id number] [address] [place] [address] Care Team Providers Care Pediatric Clinical Dietician Name Role Phone [facility] Primary Care Pr ovider Social History Tobacco UseTypesPacks/DayYears UsedDateSmoking Tobacco: Never AssessedChildcare AnswerDate SfyiprnuVstbpdoitGlnqzab46/06/2020EmploymentAnswerDate Recorded SrkvjcegkwFnxbjjc09/06/2020Purpose - LifeAnswerDate RecordedPurpose and direction in mwfvLifspeg17/11/2021CommentsUnknownSex and Gender InformationValueDate RecordedSex Assigned at BirthNot on fileLegal SexFemale 06/14/2020 3:44 PM EDTGender LliqulttVcpn32/06/2020 3:59 PM EDTSexual OrientationNot on file Plan of Treatment Health MaintenanceDue DateLast DoneCommentsDepression Klyjawbbb82/03/2015Tobacco Lbkkvydrl93/03/2015dult BMI Dctztcwmv34/03/2021DTaP,Tdap and Td Vaccines (1 - Tdap)2Pap Smear2024Influenza Hkzyfjj9005/10/2025 Medical Devices Not on file Insurance * Guarantor: Cheryl Leonecoangy TypeRelation to PatientDate of BirthPhone Billing AddressPersonal/LmrtprXxcz[address] [facility] [address] [place] [address] * Guarantor: Arun LEONE TypeRelation to PatientDate of BirthPhoneBilling AddressPersonal/SswqgdPhqqyq54/18/1968 [facility] [address] Care Teams Team MemberRelationshipSpecialtyStart DateEnd Date Him, [address] [place] [address] PCP - Dmuidjr70/6/20
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
[2025-07-10] MEDS: MORPHINE SULFATE 4 MG/ML VIAL IV (03:20)
[2025-07-10] MEDS: DIPHTH,PERTUSS(ACELL),TET VAC 0.5 ML SYRINGE IM (04:19)
[2025-07-10] MEDS: KETOROLAC TROMETHAMINE 30 MG/ML VIAL IVP (04:25)
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
[2025-07-10 05:21] VITALS: BP 128/78; PULSE 80; O2SAT 98
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
== END 2025-07-10 06:20 | disposition home or self-care (01) ==
PROVIDERS: Emergency Provider Emergency Medicine; PCP Nurse Practitioner
DX: S90.02XA Contusion of left ankle, initial encounter (principal); S20.01XA Contusion of right breast, initial encounter; V47.5XXA Car driver injured in collision with fixed or stationary object in traffic accident, initial encounter; S20.111A Abrasion of breast, right breast, initial encounter; Z23 Encounter for immunization
CPT/HCPCS: 70450; 71260; 72125; 73610; 74177; 76376; 90471; 90715; 96374; 96375; 99285; J1885; J2270; J2405; Q9967